=== PATIENT | female | born 1970 | race Two or more races ===

== ENCOUNTER 2019-11-06 07:52 | Day surgery (SDC) | payer OTHER ==
[2019-11-06] VITALS (10 sets, daily range): BP systolic 93–130; BP diastolic 53–85
[~2019-11-06] VITALS: Ht 152.4 cm; Wt 87.5 kg
--- NOTE | 2019-11-06 07:19 | Operative Note - PDOC ---
Operative Note Operative Note Pre-op Diagnosis: left knee internal deragement Procedure: see op report Post-op Diagnosis: same as pre-op plus Operative Findings: consistent w/pre-op dx studies Anesthesia: MAC Specimen: none Complications: none Condition: stable Estimated Blood Loss: none Implant(s) used?: No Pérez Mejia MD Nov 06, 2019 07:19
--- NOTE | 2019-11-06 07:19 | Pre-Procedure Note/Attestation ---
Pre-Procedure Note/Attestation Complete Prior to Procedure Planned Procedure: left Procedure Narrative: knee arthoscopy, possible menisectomy, synovectomy, chondroplasty Indications for Procedure Pre-Operative Diagnosis: left knee internal deragement Attestation I attest that I discussed the nature of the procedure; its benefits; risks and complications; and alternatives (and the risks and benefits of such alternatives ), prior to the procedure, with the patient (or the patient's legal termite control service representative). I attest that, if there was a reasonable possibility of needing a blood transfusion, the patient (or the patient's legal termite control service representative) was given the [facility] standardized written summary, pursuant to the [place] Blood Safety Act ([place] Health and Safety Code # 1645, as amended). I attest that I re-evaluated the patient just prior to the surgery and that there has been no change in the patient's H&P, except as documented below: Pérez Mejia MD Nov 06, 2019 07:19
[~2019-11-06 07:52] MED LIST: D5 1/2NS 1,000 ML IV SCH; HYDROcodone/Acetamin 5/325 tab ORAL PRN; HYDROmorphone 1mg/ml Carpuject SUBQ PRN; Tylenol #3 tab (300mg/30mg) ORAL PRN; ceFAZolin 1gm IVPB IVPB ONE; celeBREX 200mg Cap **SURGERY PATIENTS ONLY ORAL ONE; oxyCONTIN 20mg tab ORAL ONE
[2019-11-06] MEDS ORDERED: TYLENOL EXTRA500 MG ORAL (08:27)
[2019-11-06] MEDS ORDERED: CYMBALTA30 MG ORAL (08:27)
[2019-11-06] MEDS ORDERED: ZOLOFT25 MG ORAL (08:27)
[2019-11-06] MEDS ORDERED: oxyCONTIN 20mg tab ORAL ONE (08:42)
[2019-11-06] MEDS ORDERED: celeBREX 200mg Cap **SURGERY PATIENTS ONLY ORAL ONE (08:42)
[2019-11-06] MEDS ORDERED: EPINEPHrine 1mg/1ml Amp ONE (10:39)
[2019-11-06] MEDS ORDERED: Ketorolac 30mg Inj ONE (10:40)
[2019-11-06] MEDS ORDERED: Bupivacaine 0.25% Inj 30ml INJ ONE (10:40)
[2019-11-06] MEDS ORDERED: Lidocaine 1% 10mg/ml/Epi 0.005mg/ml 30ml vial INJ ONE (10:40)
[2019-11-06] MEDS ORDERED: Kenalog-40 1ml Vial ONE (10:40)
[2019-11-06] MEDS ORDERED: Duramorph PF 5mg/10ml amp ONE (10:40)
[2019-11-06] MEDS ORDERED: Midazolam 2mg/2ml Inj ONE (10:53)
[2019-11-06] MEDS ORDERED: Lidocaine 1% MPF 10mg/ml 5ml ONE (10:53)
[2019-11-06] MEDS ORDERED: fentaNYL 100 mcg/2 mL IV ONE (10:53)
[2019-11-06] MEDS ORDERED: Propofol 200mg/20ml IV ONE (10:53)
[2019-11-06] MEDS ORDERED: LR 1000ml 1,000 ML IVLG SCH (10:59)
--- NOTE | 2019-11-06 10:59 | Anethesia Preoperative Eval ---
Anesthesia Pre-op PMH/ROS General Date of Evaluation: Nov 06, 2019 Anesthesiologist: Maciel ASA Score: ASA 2 Mallampati Score Class I : Soft palate, uvula, fauces, pillars visible Class II: Soft palate, uvula, fauces visible Class III: Soft palate, base of uvula visible Class IV: Only hard plate visible Mallampati Classification: Class II Surgeon: Roberto Diagnosis: Left knee pain Surgical Procedure: Left knee arthroscopy Anesthesia History: none Family History: no anesthesia problems Allergies: Coded Allergies: No Known Allergies (Unverified , 11/06/19) Medications: see eMAR Patient NPO?: Yes NPO Date: Nov 06, 2019 NPO Time: 00:00 Past Medical History Cardiovascular: Denies: HTN, CAD, PR, valve dz, arrhythmia, other Pulmonary: Denies: asthma, COPD, CHAD, other Gastrointestinal/Genitourinary: Reports: GERD; Denies: CRI, ESRD, other Neurologic/Psychiatric: Reports: depression/anxiety; Denies: dementia, CVA, TIA, other Endocrine: Denies: DM, hypothyroidism, steroids, other HEENT: Denies: cataract (L), cataract (R), glaucoma, [place] (L), [place] (R), other Hematology/Immune: Denies: anemia, DVT, bleeding disorder, other Musculoskeletal/Integumentary: Denies: OA, RA, DJD, DDD, edema, other Other: obesity PSxH Narrative: septoplasty, lap moose, BUTCH, right shoulder sx Anesthesia Pre-op Phys. Exam Physician Exam Last Vital Signs Date Time Temp Pulse Resp B/P (MAP) Pulse Ox O2 Delivery O2 Flow Rate FiO2 11/06/19 08:28 Room Air 11/06/19 08:21 98.2 76 18 130/70 98 Constitutional: NAD Cardiovascular: RRR Respiratory: CTA Airway Exam Mallampati Score: Class II MO: limited Neck: short,obese ROM: limited Anesthesia Pre-op A/P Labs see chart Studies Pre-op Studies: EKG - sr Risk Assessment & Plan Assessment: ASA II Plan: GA Status Change Before Surgery: No Pre-Antibiotics Drug: ANcef 2g Given Within 1 Hr of Incision: Yes Sierra Marlow MD Nov 06, 2019 10:59
[2019-11-06] MEDS ORDERED: LORazepam Inj 2mg/ml 1ml IV PRN (11:00)
[2019-11-06] MEDS ORDERED: Hydromorphone 0.5mg/0.5ml inj IVP PRN (11:00)
[2019-11-06] MEDS ORDERED: Midazolam 2mg/2ml Inj IVP PRN (11:00)
[2019-11-06] MEDS ORDERED: Ketorolac 30mg Inj IV PRN (11:00)
[2019-11-06] MEDS ORDERED: LR 1000ml ONE (11:00)
[2019-11-06] MEDS ORDERED: fentaNYL 100 mcg/2 mL IV PRN (11:00)
[2019-11-06] MEDS ORDERED: Metoclopramide 10mg/2ml Inj IVP PRN (11:00)
[2019-11-06] MEDS ORDERED: DiphenhydrAMINE 50mg/ml Inj IVP PRN (11:00)
[2019-11-06] MEDS ORDERED: Dexamethasone 4mg/ml vial ONE (11:09)
[2019-11-06] MEDS ORDERED: NS Irrig 4000ml IRRIG ONE (11:12)
--- NOTE | 2019-11-06 11:48 | Immediate Post-Op Evaluation ---
Immediate Post-Op Evalulation Immediate Post-Op Evalulation Procedure: Left knee arthroscopy Date of Evaluation: Nov 06, 2019 Time of Evaluation: 11:48 IV Fluids: 600 Blood Products: 0 Estimated Blood Loss: min Urinary Output: 0 Blood Pressure Systolic: 97 Blood Pressure Diastolic: 58 Pulse Rate: 83 Respiratory Rate: 16 O2 Sat by Pulse Oximetry: 99 Temperature (Fahrenheit): 97.1 Pain Score (1-10): 0 Nausea: No Vomiting: No Complications 0 Patient Status: awake, reacts, patent, none Hydration Status: adequate Drug: Ancef 2g Given Within 1 Hr of Incision: Yes Sierra Marlow MD Nov 06, 2019 11:48
--- NOTE | 2019-11-06 11:48 | 48 Hour Post Anesthesia Eval ---
Post Anesthesia Evaluation Procedure: Left knee arthroscopy Date of Evaluation: Nov 06, 2019 Airway: patent Nausea: No Vomiting: No Pain Intensity: 0 Hydration Status: adequate Cardiopulmonary Status: at baseline Mental Status/LOC: patient returned to baseline Post-Anesthesia Complications: 0 Follow-up care needed: ready to discharge Sierra Marlow MD Nov 06, 2019 11:48
--- NOTE | 2019-11-06 17:00 | Operative Note - Dictated ---
DATE OF OPERATION: 11/06/2019 PREOPERATIVE DIAGNOSES: 1. Internal derangement, left knee. 2. Intrameniscal degeneration posterior horn and medial meniscus. POSTOPERATIVE DIAGNOSES: 1. Left knee hypertrophic medial plica. 2. Hypertrophic synovial tissue medial and lateral patellofemoral compartment. 3. Medial tibial plateau chondral damage. Procedure: 1. Left knee diagnostic arthroscopy 2. Left knee medial, lateral, and patellafemoral synovectomy/ecision of fat pad SURGEON: Pérez Escobar M.D. ANESTHESIA: MAC. INDICATION FOR PROCEDURE: The patient is a pleasant 49-year-old female with left knee pain. She had an MRI, which showed possible signal change along the meniscus. She also continued to have anterior knee pain and mechanical symptoms. She failed conservative treatment and elected to undergo left knee diagnostic arthroscopy, possible synovectomy, chondroplasty, and meniscectomy based on intraoperative findings. Risks, limitations, expectations, and complications of the procedure were discussed in detail. All questions addressed. DESCRIPTION OF PROCEDURE: After informed consent was obtained, the patient was brought to the operating room. The patient was placed under general anesthesia. Left leg was prepped and draped in a sterile manner. Ancef was administered. Time-out was performed. Inferolateral stab incision was then made. Trocar was introduced into the knee joint. There was hypertrophic synovial tissue, fat pad as well as a medial plica. Medial compartment was entered and medial working portal was established. Synovectomy of the anterior compartment and medial compartment was performed. This was done in the intercondylar notch and lateral compartment to allow better position. Once this was done, medial compartment was entered. The meniscus was probed and noted to be intact. No significant chondral damage although she did have some grade 1 chondral damage in the distal femoral condyle. The ACL was probed and noted to be intact. Lateral compartment was entered and free of meniscal chondral damage. The camera was repositioned in the patellofemoral compartment and then the medial plica along with the remaining fat pad was excised. Once this was done, the instruments were removed. Portal sites were closed with 3-0 Monocryl sutures. Steri-Strips and a sterile dressing were applied. ESTIMATED BLOOD LOSS: None. COMPLICATIONS: None. SPECIMENS: None. IMPLANTS: None. Pérez Mejia M.D. DR: MATTHIAS JOB#: [id number] CC: [id number]
== END 2019-11-06 13:30 | disposition home or self-care (01) ==
LOC: SUR 07:52
DX: M67.262 Synovial hypertrophy, not elsewhere classified, left lower leg (principal); K21.9 Gastro-esophageal reflux disease without esophagitis; F32.9 Major depressive disorder, single episode, unspecified; F41.9 Anxiety disorder, unspecified; E66.9 Obesity, unspecified; Z90.49 Acquired absence of other specified parts of digestive tract; Z68.37 Body mass index [BMI] 37.0-37.9, adult
CPT/HCPCS: 29876; J0171; J0690; J1100; J1885; J2250; J2405; J2704; J3010; J3301; J3490; J7120; 94003; 94150